=== PATIENT | female | born 1955 | race Caucasian/White ===

== ENCOUNTER 2018-04-18 01:17 | Emergency (ER) | payer MEDICAID ==
[~2018-04-18] VITALS: Ht 157.5 cm; Wt 86.2 kg
[~2018-04-18 01:17] MED LIST: AMOX-426 PO; CLON1TAB5 PO; GLUXR500 PO; LEVO88TA5 PO; LISI10TA5 PO; LORA10TA7 PO; OMEP20CA10 PO
[2018-04-18 01:28] VITALS: BP_SYST 134
[2018-04-18] MEDS ORDERED: NACL 0.9% 1,000 ML IV ONE (01:45)
[2018-04-18] MEDS ORDERED: ONDANSETRON HCL 4 MG/2 ML VIAL IVP ONE (01:45)
[2018-04-18 01:55] LABS: BILIRUBIN,URINE NEGATIVE (NEGATIVE); BLOOD, URINE NEGATIVE (NEGATIVE); CLARITY/URINE CLEAR (CLEAR); COLOR,URINE YELLOW (YELLOW); GLUCOSE,URINE NEGATIVE (NEGATIVE); KETONES,URINE NEGATIVE (NEGATIVE); LEUKOCYTE ESTERASE ,URINE TRACE (NEGATIVE); NITRITE, URINE NEGATIVE (NEGATIVE); PROTEIN URINE NEGATIVE (NEGATIVE); UROBILINOGEN,URINE 0.2 (0.2-1.0)
[2018-04-18 02:24] LABS: BASOPHILS # (AUTO) 0.2 K/uL (0.0-0.2); BASOPHILS % (AUTO) 1.9 % (0.0-2.0); EOSINOPHILS # (AUTO) 0.1 K/uL (0.0-0.4); HEMOGLOBIN 12.3 g/dL (12.0-16.0); LYMPHOCYTES # (AUTO) 2.3 K/uL (1.0-5.5); LYMPHOCYTES % (AUTO) 28.3 % (20.5-51.5); MEAN CORPUSCULAR HEMOGLOBIN 30 pg (27-31); MEAN CORPUSCULAR HGB CONC 34 % (32-36); MEAN CORPUSCULAR VOLUME 87 fL (79.0-98.0); MONOCYTES # (AUTO) 0.3 K/uL (0.0-1.0); MONOCYTES % (AUTO) 3.7 % (1.7-9.3); NEUTROPHILS # (AUTO) 5.1 K/uL (1.8-7.7); NEUTROPHILS % (AUTO) 65.1 % (40.0-70.0); PLATELET COUNT (AUTO) 350 K/uL (130-430); RED BLOOD CELL COUNT(AUTO) 4.13 MIL/uL (4.2-6.2); RED CELL DISTRIBUTION WIDTH 12.3 % (9.0-15.0)
[2018-04-18 02:39] LABS: CALCIUM 9.3 mg/dL (8.4-11.0); CREATININE 0.96 mg/dL (0.55-1.30); POTASSIUM 4.1 mmol/L (3.5-5.1)
[2018-04-18 02:45] LABS: ALBUMIN 3.7 g/dL (3.4-4.8); TOTAL BILIRUBIN 0.4 mg/dL (0.0-1.0)
[2018-04-18] MEDS ORDERED: HYDROcodone/ACETAMIN 5-325 MG TAB (NORCO/ VICODIN) PO ONE (05:45)
[2018-04-18 06:32] VITALS: BP_SYST 130
== END 2018-04-18 06:32 | disposition home or self-care (01) ==
LOC: SED 01:17
DX: R42 Dizziness and giddiness (principal); R11.0 Nausea; E03.9 Hypothyroidism, unspecified; R79.89 Other specified abnormal findings of blood chemistry; J45.909 Unspecified asthma, uncomplicated; E11.9 Type 2 diabetes mellitus without complications; K21.9 Gastro-esophageal reflux disease without esophagitis; I10 Essential (primary) hypertension; F41.9 Anxiety disorder, unspecified; E78.00 Pure hypercholesterolemia, unspecified; Z79.899 Other long term (current) drug therapy; Z88.8 Allergy status to other drugs, medicaments and biological substances
CPT/HCPCS: 36415; 70450; 71045; 80053; 81003; 83605; 84439; 84443; 84484; 85025; 87040; 93005; 96361; 96374; 99285; J2405; J7030

== ENCOUNTER 2019-05-04 18:48 | Emergency (ER) | payer BC, MEDICAID ==
[~2019-05-04] VITALS: Ht 157.5 cm; Wt 86.2 kg
[2019-05-04 18:48] VITALS: BP_SYST 172
[~2019-05-04 18:48] MED LIST changes: +CLON1TAB12 PO; -CLON1TAB5 PO
--- NOTE | 2019-05-04 18:48 | NUR ---
BROUGHT IN BY [facility] AND PLACED IN BED #3, REPORT GIVEN TO BIRD RAISER
--- NOTE | 2019-05-04 19:20 | NUR ---
Pt BIB BLS C/O generalized abdominal pain after eating tacos. Pt denies any N/V/D or any other symptoms at this time. Will continue to monitor.
[2019-05-04 19:44] LABS: BASOPHILS % (AUTO) 0.4 % (0.0-2.0); EOSINOPHILS % (AUTO) 0.2 % (0.0-4.0); HEMATOCRIT 37.5 % (36-48); HEMOGLOBIN 12.8 g/dL (12.0-16.0); LYMPHOCYTES % (AUTO) 23.8 % (20.5-51.5); MEAN CORPUSCULAR HEMOGLOBIN 30 pg (27-31); MEAN CORPUSCULAR HGB CONC 34 % (32-36); MEAN CORPUSCULAR VOLUME 88 fL (79.0-98.0); MONOCYTES # (AUTO) 0.8 K/uL (0.0-1.0); MONOCYTES % (AUTO) 6.6 % (1.7-9.3); NEUTROPHILS # (AUTO) 8.8 K/uL (1.8-7.7); PLATELET COUNT (AUTO) 337 K/uL (130-430); RED BLOOD CELL COUNT(AUTO) 4.25 MIL/uL (4.2-6.2); RED CELL DISTRIBUTION WIDTH 12.9 % (9.0-15.0); WHITE BLOOD COUNT (AUTO) 12.8 K/uL (4.8-10.8)
[2019-05-04 19:59] LABS: ALBUMIN 3.4 g/dL (3.4-4.8); CALCIUM 8.8 mg/dL (8.4-11.0); CREATININE 0.9 mg/dL (0.55-1.30); TOTAL BILIRUBIN 0.4 mg/dL (0.0-1.0)
--- NOTE | 2019-05-04 20:03 | NUR ---
Urine sample sent to lab.
[2019-05-04 20:04] LABS: PROTHROMBIN TIME 10.1 SECS (9.5-12.5)
--- NOTE | 2019-05-04 20:26 | NUR ---
ER Dr. Meraz at bedside examining patient.
[2019-05-04] MEDS ORDERED: NACL 0.9% 1,000 ML IV ONE (20:37)
[2019-05-04] MEDS ORDERED: IOHEXOL 100 ML IV ONE (20:59)
--- NOTE | 2019-05-04 21:05 | NUR ---
# 20 gauge angiocath placed to RT AC. Use of asceptic technique. Opsite placed over site. Blood return noted. Blood for lab drawn from site. Flushed with 10 cc of normal saline. No evidence of infiltration noted. Patient tolerated well.
[2019-05-04 21:06] LABS: BILIRUBIN,URINE NEGATIVE (NEGATIVE); CLARITY/URINE CLEAR (CLEAR); COLOR,URINE YELLOW (YELLOW); GLUCOSE,URINE NEGATIVE (NEGATIVE); KETONES,URINE NEGATIVE (NEGATIVE); LEUKOCYTE ESTERASE ,URINE NEGATIVE (NEGATIVE); NITRITE, URINE NEGATIVE (NEGATIVE); PROTEIN URINE NEGATIVE (NEGATIVE); UROBILINOGEN,URINE 0.2 (0.2-1.0)
[2019-05-04 21:07] LABS: BLOOD, URINE TRACE (NEGATIVE)
--- NOTE | 2019-05-04 21:15 | NUR ---
Patient transported to radiology via gurney, accompanied by rad staff.
[2019-05-04 21:17] LABS: BACTERIA,URINE FEW /HPF (None Seen); WBC,URINE 0-3 /HPF (0-3)
--- NOTE | 2019-05-04 21:37 | NUR ---
Returned from radiology in stable condition
[2019-05-04] MEDS ORDERED: metroNIDAZOLE 500 mg/NS 100 ML IV ONE (22:30)
[2019-05-04] MEDS ORDERED: CIPROFLOXACIN HCL 500 MG TABLET PO ONE (22:30)
--- NOTE | 2019-05-04 22:37 | NUR ---
Pt is resting in bed, no acute distress noted at this time. Will continue to monitor
--- NOTE | 2019-05-04 23:58 | NUR ---
Pt will be discharged but states she has no transportation home. States she lives alone, no family, friends or ability to drive.
[2019-05-05 00:24] VITALS: BP_SYST 148
--- NOTE | 2019-05-05 00:26 | NUR ---
Patient given written and verbal discharge instructions and verbalizes understanding. ER MD discussed with patient the results and treatment provided. Patient in stable condition. ID arm band removed. IV catheter removed intact and dressing applied, no active bleeding. Rx of Falgyl and Cipro given. Patient educated on pain management and to follow up with PMD. Pain Scale 0. Opportunity for questions provided and answered. Medication side effect fact sheet provided.
== END 2019-05-05 00:26 | disposition home or self-care (01) ==
LOC: SED 18:48
DX: K57.32 Diverticulitis of large intestine without perforation or abscess without bleeding (principal); J45.909 Unspecified asthma, uncomplicated; E11.9 Type 2 diabetes mellitus without complications; K21.9 Gastro-esophageal reflux disease without esophagitis; I10 Essential (primary) hypertension; E07.9 Disorder of thyroid, unspecified; F41.9 Anxiety disorder, unspecified; E78.00 Pure hypercholesterolemia, unspecified; Z90.49 Acquired absence of other specified parts of digestive tract; Z90.710 Acquired absence of both cervix and uterus; Z88.8 Allergy status to other drugs, medicaments and biological substances; Z79.84 Long term (current) use of oral hypoglycemic drugs
CPT/HCPCS: 36415; 74018; 74177; 80053; 81000; 83690; 85025; 85610; 85730; 87040; 96361; 96365; 99284; J3490; J7030; Q9967

== ENCOUNTER 2019-07-05 08:28 | Emergency (ER) | payer BC, MEDICAID ==
[~2019-07-05] VITALS: Ht 157.5 cm; Wt 86.2 kg
[~2019-07-05 08:28] MED LIST changes: -OMEP20CA10 PO; +OMEP20CA11 PO
[2019-07-05 08:34] VITALS: BP_SYST 156
[2019-07-05] MEDS ORDERED: DIPHENHYDRAMINE INJ 50 MG/ML VIAL IVP ONE (08:45)
[2019-07-05] MEDS ORDERED: NS 500 ML IV ONE (08:45)
[2019-07-05] MEDS ORDERED: PROCHLORPERAZINE EDISYLATE 10 MG/2 ML VIAL IVP ONE (08:45)
[2019-07-05] MEDS ORDERED: SIMV10TA2 PO (08:45)
[2019-07-05] MEDS ORDERED: ASPI-1047 PO (08:46)
[2019-07-05 10:30] VITALS: BP_SYST 115
== END 2019-07-05 10:30 | disposition home or self-care (01) ==
LOC: SED 08:28
DX: R51 Headache (principal); R11.2 Nausea with vomiting, unspecified; I10 Essential (primary) hypertension; E11.9 Type 2 diabetes mellitus without complications; J45.909 Unspecified asthma, uncomplicated; K21.9 Gastro-esophageal reflux disease without esophagitis; E78.00 Pure hypercholesterolemia, unspecified; F41.9 Anxiety disorder, unspecified; Z88.8 Allergy status to other drugs, medicaments and biological substances; Z79.84 Long term (current) use of oral hypoglycemic drugs; Z79.899 Other long term (current) drug therapy
CPT/HCPCS: 70450; 96361; 96374; 96375; 99284; J0780; J1200; J7040

== ENCOUNTER 2020-10-02 23:02 | Emergency (ER) | payer BC, MEDICAID ==
[~2020-10-02] VITALS: Ht 167.6 cm; Wt 74.8 kg
[~2020-10-02 23:02] MED LIST changes: +ASPI-1047 PO; -OMEP20CA11 PO; +OMEP20CA15 PO; +SIMV10TA2 PO
[2020-10-02 23:04] VITALS: BP_SYST 152
--- NOTE | 2020-10-02 23:09 | NUR ---
Patient triaged and placed in ambulance. VSS and patient appears in no acute distress at this time. Accompanied by EMS , awaiting available bed, and MD notified of need for MSE.
--- NOTE | 2020-10-02 23:55 | NUR ---
Patient did not wish to stay. Patient left without being seen. No further treatment provided
[2020-10-03] MEDS ORDERED: ONDANSETRON 4 MG ODT TAB PO ONE
== END 2020-10-02 23:55 | disposition left against medical advice (07) ==
LOC: SED 23:02
DX: R11.10 Vomiting, unspecified (principal); Z53.21 Procedure and treatment not carried out due to patient leaving prior to being seen by health care provider
CPT/HCPCS: 82962

== ENCOUNTER 2021-10-24 13:28 | Emergency (ER) | payer BC, MEDICAID, SELFPAY ==
[~2021-10-24] VITALS: Ht 157.5 cm; Wt 81.6 kg
[~2021-10-24 13:28] MED LIST changes: +LISI10TA29 PO; -LISI10TA5 PO
[2021-10-24 13:43] VITALS: BP_SYST 143
--- NOTE | 2021-10-24 13:45 | NUR ---
PT A/OX4 , AMBULATORY FROM HOME, C/O SOB X3 DAYS. PT PLACED IN R 8 ON MONITOR, VSS. ED MD HUNT SEEN PT GAVE ORDERS . PT APPEARS STABLE , NAD NOTED
--- NOTE | 2021-10-24 14:25 | NUR ---
PT REMAIN IN ROOM 8 ON THE CONVEYANCER, NO CHANGES IN CONDIRION, AWAITING MD ORDERS
[2021-10-24 14:53] LABS: BASOPHILS # (AUTO) 0.1 K/uL (0.0-0.2); EOSINOPHILS # (AUTO) 0.3 K/uL (0.0-0.4); EOSINOPHILS % (AUTO) 3.3 % (0.0-4.0); HEMATOCRIT 35.1 % (36-48); HEMOGLOBIN 11.9 g/dL (12.0-16.0); LYMPHOCYTES % (AUTO) 34.3 % (20.5-51.5); MEAN CORPUSCULAR HEMOGLOBIN 29 pg (27-31); MEAN CORPUSCULAR HGB CONC 34 % (32-36); MEAN CORPUSCULAR VOLUME 85 fL (79.0-98.0); MONOCYTES # (AUTO) 0.6 K/uL (0.0-1.0); MONOCYTES % (AUTO) 6.5 % (1.7-9.3); NEUTROPHILS # (AUTO) 4.8 K/uL (1.8-7.7); NEUTROPHILS % (AUTO) 54.9 % (40.0-70.0); PLATELET COUNT (AUTO) 340 K/uL (130-430); RED BLOOD CELL COUNT(AUTO) 4.14 MIL/uL (4.2-6.2); RED CELL DISTRIBUTION WIDTH 14.2 % (9.0-15.0); WHITE BLOOD COUNT (AUTO) 8.7 K/uL (4.8-10.8)
[2021-10-24 14:54] LABS: CALCIUM 8.8 mg/dL (8.4-11.0); CREATININE 0.75 mg/dL (0.55-1.30); POTASSIUM 3.9 mmol/L (3.5-5.1)
--- NOTE | 2021-10-24 14:56 | NUR ---
PT SWABBED AND SENT TO LAB
[2021-10-24 15:00] LABS: ALBUMIN 3.6 g/dL (3.4-4.8); TOTAL BILIRUBIN 0.2 mg/dL (0.0-1.0)
[2021-10-24] MEDS ORDERED: IPRATROPIUM/ALBUTEROL SULFATE 3 ML AMPUL.NEB (DUONEB) INH ONE ×2 (15:15)
[2021-10-24] MEDS ORDERED: predniSONE 20 MG TABLET PO ONE (15:15)
[2021-10-24] MEDS ORDERED: ALBUTEROL SULFATE 0.083% 2.5 MG/3 ML VIAL.NEB INH ONE (15:15)
--- NOTE | 2021-10-24 15:20 | NUR ---
PT MEDICATED PER MD SORENSEN ORDER. RT TX IN ROUTE AT THE BED SIDE
--- NOTE | 2021-10-24 15:34 | NUR ---
PT AMBULATED TO BATHROOM, W/O DIFFICULTIES
[2021-10-24] MEDS ORDERED: AZIT-93 PO (16:47)
[2021-10-24] MEDS ORDERED: PRED20TA PO (16:47)
[2021-10-24] MEDS ORDERED: ALBU8.5H8 INH (16:47)
[2021-10-24 17:25] VITALS: BP_SYST 140
--- NOTE | 2021-10-24 17:25 | NUR ---
Patient given written and verbal discharge instructions and verbalizes understanding. ER MD Clemens discussed with patient the results and treatment provided. Patient in stable condition. ID arm band removed. Rx and ACI given and explained . Patient educated on pain management and to follow up with PMD. Pain Scale . Opportunity for questions provided and answered. Medication side effect fact sheet provided.
== END 2021-10-24 17:25 | disposition home or self-care (01) ==
LOC: SED 13:28
DX: J45.901 Unspecified asthma with (acute) exacerbation (principal); E11.9 Type 2 diabetes mellitus without complications; K21.9 Gastro-esophageal reflux disease without esophagitis; I10 Essential (primary) hypertension; E07.9 Disorder of thyroid, unspecified; F41.9 Anxiety disorder, unspecified; E78.00 Pure hypercholesterolemia, unspecified; Z20.822 Contact with and (suspected) exposure to COVID-19
CPT/HCPCS: 36415; 71045; 80053; 83605; 83880; 85025; 87426; 87804 ×2; 94640; 99285; J7512; J7613

== ENCOUNTER 2021-12-11 23:26 | Emergency (ER) | payer BC, MEDICAID, SELFPAY ==
[~2021-12-11] VITALS: Ht 160 cm; Wt 93.0 kg
[~2021-12-11 23:26] MED LIST changes: +ALBU8.5H8 INH; +AZIT-93 PO; +PRED20TA PO
[2021-12-11 23:41] VITALS: BP_SYST 146
--- NOTE | 2021-12-11 23:46 | NUR ---
66 FEMALE BROUGHT IN BY [facility] FOR WEAKNESS, NAUSEA WITH VOMITING, HEADACHE AND ELEVATED BLOOD PRESSURE. PT IS AOX4, AND IS OMANI SPEAKING ONLY. PT REPORTS HISTORY OF HYPERTENSION, DIABETES, AND HYPOTHYROID. 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 MD AT THE BEDSIDE
--- NOTE | 2021-12-11 23:50 | NUR ---
EMS= BLG SUGAR= 164
[2021-12-12] MEDS ORDERED: ASPIRIN 325 MG TABLET PO ONE
[2021-12-12] MEDS ORDERED: cloNIDine HCL 0.1 MG TABLET PO ONE
[2021-12-12] MEDS ORDERED: cloNIDine HCL 0.1 MG TABLET ONE (00:06)
[2021-12-12 00:52] LABS: BASOPHILS # (AUTO) 0.1 K/uL (0.0-0.2); BASOPHILS % (AUTO) 0.9 % (0.0-2.0); EOSINOPHILS # (AUTO) 0.1 K/uL (0.0-0.4); EOSINOPHILS % (AUTO) 0.8 % (0.0-4.0); HEMATOCRIT 37.8 % (36-48); HEMOGLOBIN 12.7 g/dL (12.0-16.0); LYMPHOCYTES # (AUTO) 2.3 K/uL (1.0-5.5); LYMPHOCYTES % (AUTO) 33.4 % (20.5-51.5); MEAN CORPUSCULAR HEMOGLOBIN 29 pg (27-31); MEAN CORPUSCULAR HGB CONC 34 % (32-36); MEAN CORPUSCULAR VOLUME 85 fL (79.0-98.0); MONOCYTES # (AUTO) 0.4 K/uL (0.0-1.0); MONOCYTES % (AUTO) 6.4 % (1.7-9.3); NEUTROPHILS % (AUTO) 58.5 % (40.0-70.0); PLATELET COUNT (AUTO) 355 K/uL (130-430); RED BLOOD CELL COUNT(AUTO) 4.44 MIL/uL (4.2-6.2); RED CELL DISTRIBUTION WIDTH 13.2 % (9.0-15.0); WHITE BLOOD COUNT (AUTO) 6.8 K/uL (4.8-10.8)
[2021-12-12 01:19] LABS: ANION GAP 12 (5-15); CALCIUM 9.2 mg/dL (8.4-11.0); CHLORIDE 98 mmol/L (98-107); CREATININE 0.92 mg/dL (0.55-1.30); GLUCOSE 160 mg/dL (70-99); POTASSIUM 3.9 mmol/L (3.5-5.1); SODIUM SERUM 135 mmol/L (136-145); UREA NITROGEN, BLOOD 15 mg/dL (8-21)
[2021-12-12 01:22] LABS: GFR AFRICAN AMERICAN 78 mL/min (>90)
[2021-12-12 01:28] LABS: ALANINE AMINOTRANSFERASE 21 U/L (12-78); ALBUMIN 3.7 g/dL (3.4-4.8); ASPARTATE AMINOTRANSFERASE 16 U/L (10-37)
[2021-12-12 01:42] LABS: TOTAL BILIRUBIN < 0.1 mg/dL (0.0-1.0)
[2021-12-12 02:30] LABS: BILIRUBIN,URINE NEGATIVE (NEGATIVE); BLOOD, URINE NEGATIVE (NEGATIVE); CLARITY/URINE CLEAR (CLEAR); COLOR,URINE YELLOW (YELLOW); GLUCOSE,URINE NEGATIVE (NEGATIVE); KETONES,URINE NEGATIVE (NEGATIVE); LEUKOCYTE ESTERASE ,URINE NEGATIVE (NEGATIVE); NITRITE, URINE NEGATIVE (NEGATIVE); PROTEIN URINE NEGATIVE (NEGATIVE); UROBILINOGEN,URINE 0.2 (0.2-1.0)
[2021-12-12] MEDS ORDERED: CLON0.1T PO (02:53)
[2021-12-12 03:07] VITALS: BP_SYST 135
--- NOTE | 2021-12-12 03:08 | NUR ---
D/C IV AND EDUCATED PT UPON MEDS THAT ARE RX. TO PT. NO RESP DISTRESS AND NO CO PAIN AND CONFIRMED PT IS GOOD FOR D/C HOME. PT CALLED [facility]
== END 2021-12-12 03:44 | disposition home or self-care (01) ==
LOC: SED 23:26
DX: I10 Essential (primary) hypertension (principal); R42 Dizziness and giddiness; E11.9 Type 2 diabetes mellitus without complications; J45.909 Unspecified asthma, uncomplicated; K21.9 Gastro-esophageal reflux disease without esophagitis; E03.9 Hypothyroidism, unspecified; E78.00 Pure hypercholesterolemia, unspecified; F41.9 Anxiety disorder, unspecified; Z88.8 Allergy status to other drugs, medicaments and biological substances; Z79.899 Other long term (current) drug therapy
CPT/HCPCS: 36415; 70450-TC; 71045; 76376; 80053; 81003; 84484; 85025; 93005; 99285

== ENCOUNTER 2022-01-10 18:44 | Emergency (ER) | payer BC, MEDICAID ==
[~2022-01-10] VITALS: Ht 157.5 cm; Wt 81.6 kg
[~2022-01-10 18:44] MED LIST changes: +CLON0.1T PO
[2022-01-10 18:47] VITALS: BP_SYST 181
--- NOTE | 2022-01-10 18:47 | NUR ---
Placed in room 6 . Placed on compliance monitor, blood pressure machine and pulse oximeter. To gown for exam. Side rails up. Report given to SALLY FLEMING.
--- NOTE | 2022-01-10 18:50 | NUR ---
ER DR. AYERS EXAMINING PT
--- NOTE | 2022-01-10 18:55 | NUR ---
PT AMBULATES TO BATHROOM WITH STEADY GAIT TO PROVIDE URINE SAMPLE
--- NOTE | 2022-01-10 19:05 | NUR ---
# 20 gauge angiocath placed to RAC. Use of asceptic technique. Opsite placed over site. Blood return noted. Blood for lab drawn from site. Flushed with 10 cc of normal saline. No evidence of infiltration noted. Patient tolerated well.
--- NOTE | 2022-01-10 19:10 | NUR ---
RECD REPORT FROM ARMANI ZAVALA FOR CONTINUITY OF CARE, N/S 1L RUNNING BOLUS. VS TAKEN AND RECORDED.AFEBRIE.
[2022-01-10 19:12] LABS: BILIRUBIN,URINE NEGATIVE (NEGATIVE); BLOOD, URINE NEGATIVE (NEGATIVE); CLARITY/URINE CLEAR (CLEAR); COLOR,URINE YELLOW (YELLOW); GLUCOSE,URINE 1+ (NEGATIVE); KETONES,URINE NEGATIVE (NEGATIVE); LEUKOCYTE ESTERASE ,URINE NEGATIVE (NEGATIVE); NITRITE, URINE NEGATIVE (NEGATIVE); PROTEIN URINE NEGATIVE (NEGATIVE); UROBILINOGEN,URINE 0.2 (0.2-1.0)
[2022-01-10] MEDS: NACL 0.9% 1,000 ML IV ONE (19:16)
[2022-01-10] MEDS: ONDANSETRON HCL 4 MG/2 ML VIAL IVP ONE (19:17)
[2022-01-10 19:18] LABS: BASOPHILS # (AUTO) 0.1 K/uL (0.0-0.2); BASOPHILS % (AUTO) 0.8 % (0.0-2.0); EOSINOPHILS # (AUTO) 0.1 K/uL (0.0-0.4); EOSINOPHILS % (AUTO) 0.6 % (0.0-4.0); HEMATOCRIT 35.7 % (36-48); LYMPHOCYTES # (AUTO) 3.4 K/uL (1.0-5.5); LYMPHOCYTES % (AUTO) 37.9 % (20.5-51.5); MEAN CORPUSCULAR HEMOGLOBIN 29 pg (27-31); MEAN CORPUSCULAR HGB CONC 34 % (32-36); MEAN CORPUSCULAR VOLUME 85 fL (79.0-98.0); MONOCYTES # (AUTO) 0.5 K/uL (0.0-1.0); NEUTROPHILS # (AUTO) 4.9 K/uL (1.8-7.7); NEUTROPHILS % (AUTO) 54.7 % (40.0-70.0); PLATELET COUNT (AUTO) 339 K/uL (130-430); RED BLOOD CELL COUNT(AUTO) 4.18 MIL/uL (4.2-6.2); RED CELL DISTRIBUTION WIDTH 13.3 % (9.0-15.0); WHITE BLOOD COUNT (AUTO) 8.9 K/uL (4.8-10.8)
[2022-01-10 19:27] LABS: ANION GAP 9 (5-15); CHLORIDE 97 mmol/L (98-107); CREATININE 0.92 mg/dL (0.55-1.30); GLUCOSE 223 mg/dL (70-99); POTASSIUM 3.5 mmol/L (3.5-5.1); SODIUM SERUM 130 mmol/L (136-145); UREA NITROGEN, BLOOD 17 mg/dL (8-21)
[2022-01-10 19:29] LABS: GFR AFRICAN AMERICAN 78 mL/min (>90)
[2022-01-10 19:32] LABS: ALANINE AMINOTRANSFERASE 18 U/L (12-78); ALBUMIN 3.6 g/dL (3.4-4.8); ASPARTATE AMINOTRANSFERASE 14 U/L (10-37); TOTAL BILIRUBIN < 0.1 mg/dL (0.0-1.0)
[2022-01-10] MEDS ORDERED: ONDA-8 TL (21:17)
--- NOTE | 2022-01-10 21:30 | NUR ---
Patient given written and verbal discharge instructions and verbalizes understanding. BAM AYERS MD discussed with patient the results and treatment provided. Patient in stable condition. Patient educated on pain management and to follow up with PMD. Pain Scale [0]. Opportunity for questions provided and answered. Medication side effect fact sheet provided.
[2022-01-10 21:41] VITALS: BP_SYST 142
== END 2022-01-10 21:41 | disposition home or self-care (01) ==
LOC: SED 18:44
DX: R11.2 Nausea with vomiting, unspecified (principal); T43.225A Adverse effect of selective serotonin reuptake inhibitors, initial encounter; I10 Essential (primary) hypertension; E11.9 Type 2 diabetes mellitus without complications; J45.909 Unspecified asthma, uncomplicated; K21.9 Gastro-esophageal reflux disease without esophagitis; E78.00 Pure hypercholesterolemia, unspecified; Z88.8 Allergy status to other drugs, medicaments and biological substances; Z79.899 Other long term (current) drug therapy; Y92.89 Other specified places as the place of occurrence of the external cause
CPT/HCPCS: 36415; 80053; 81003; 85025; 96361; 96374; 99283; J2405; J7030

== ENCOUNTER 2022-03-18 13:16 | Emergency (ER) | payer BC, MEDICAID ==
[~2022-03-18] VITALS: Ht 154.9 cm; Wt 68.0 kg
[~2022-03-18 13:16] MED LIST changes: +ONDA-8 TL
[2022-03-18 13:30] VITALS: BP_SYST 165
--- NOTE | 2022-03-18 14:00 | NUR ---
Patient to ER bed Tent 3 for evaluation. Side rails up.
--- NOTE | 2022-03-18 14:10 | NUR ---
Assumed care of patient who came from home c/o cold and flu symptoms. Patient is tamazight-speaking. Pt states she has a hx of TII DM, Htn and asthma. She is resting in tent on chair at this time and appears in no acute distress. Will continue to administer care based on provider's orders.
--- NOTE | 2022-03-18 16:17 | NUR ---
BAM Singleton at bedside examining patient.
--- NOTE | 2022-03-18 17:20 | NUR ---
Patient left without being seen.
== END 2022-03-18 17:20 | disposition left against medical advice (07) ==
LOC: SED 13:16
DX: R06.02 Shortness of breath (principal); Z53.21 Procedure and treatment not carried out due to patient leaving prior to being seen by health care provider

== ENCOUNTER 2022-03-21 11:12 | Emergency (ER) | payer BC, MEDICAID ==
[~2022-03-21] VITALS: Ht 157.5 cm; Wt 81.6 kg
[2022-03-21 11:48] VITALS: BP_SYST 141
--- NOTE | 2022-03-21 11:57 | NUR ---
Patient to ER bed 8 to gown for evaluation. Side rails up. Report given to
--- NOTE | 2022-03-21 12:10 | NUR ---
MD BURGOS AT BEDSIDE ASSESSING PT.
[2022-03-21] MEDS ORDERED: DIPHENHYDRAMINE INJ 50 MG/ML VIAL IVP ONE (12:30)
[2022-03-21] MEDS ORDERED: NS 1000 ML IV.SOLN IV ONE (12:30)
[2022-03-21] MEDS ORDERED: ONDANSETRON HCL 4 MG/2 ML VIAL IVP ONE (12:30)
[2022-03-21] MEDS ORDERED: KETOROLAC TROMETHAMINE 30 MG VIAL IVP ONE (12:30)
[2022-03-21 13:10] LABS: BASOPHILS # (AUTO) 0.1 K/uL (0.0-0.2); BASOPHILS % (AUTO) 1.1 % (0.0-2.0); EOSINOPHILS # (AUTO) 0.1 K/uL (0.0-0.4); HEMATOCRIT 36.8 % (36-48); HEMOGLOBIN 12.8 g/dL (12.0-16.0); LYMPHOCYTES # (AUTO) 1.9 K/uL (1.0-5.5); LYMPHOCYTES % (AUTO) 43.4 % (20.5-51.5); MEAN CORPUSCULAR HEMOGLOBIN 29 pg (27-31); MEAN CORPUSCULAR HGB CONC 35 % (32-36); MEAN CORPUSCULAR VOLUME 84 fL (79.0-98.0); MONOCYTES # (AUTO) 0.6 K/uL (0.0-1.0); MONOCYTES % (AUTO) 13.8 % (1.7-9.3); NEUTROPHILS # (AUTO) 1.8 K/uL (1.8-7.7); NEUTROPHILS % (AUTO) 39.7 % (40.0-70.0); PLATELET COUNT (AUTO) 243 K/uL (130-430); RED BLOOD CELL COUNT(AUTO) 4.37 MIL/uL (4.2-6.2); RED CELL DISTRIBUTION WIDTH 13.7 % (9.0-15.0); WHITE BLOOD COUNT (AUTO) 4.4 K/uL (4.8-10.8)
--- NOTE | 2022-03-21 13:18 | NUR ---
IV INSERTED TO THE RIGHT WRIST IN 2 ATTEMPTS.
--- NOTE | 2022-03-21 13:30 | NUR ---
PT DOING BETTER. NEGATIVE FOR COVID AND FLU. PT IS STABLE.
[2022-03-21 13:34] LABS: ANION GAP 8 (5-15); CALCIUM 9.2 mg/dL (8.4-11.0); CHLORIDE 95 mmol/L (98-107); GFR AFRICAN AMERICAN 92 mL/min (>90); GLUCOSE 183 mg/dL (70-99); POTASSIUM 3.9 mmol/L (3.5-5.1); SODIUM SERUM 128 mmol/L (136-145); UREA NITROGEN, BLOOD 12 mg/dL (8-21)
[2022-03-21 13:38] LABS: ALANINE AMINOTRANSFERASE 20 U/L (12-78); ALBUMIN 3.6 g/dL (3.4-4.8); ASPARTATE AMINOTRANSFERASE 17 U/L (10-37); TOTAL BILIRUBIN 0.3 mg/dL (0.0-1.0)
[2022-03-21] MEDS ORDERED: IBUP-1969 PO (14:15)
[2022-03-21] MEDS ORDERED: ACET-2634 PO (14:16)
[2022-03-21 14:25] LABS: BILIRUBIN,URINE NEGATIVE (NEGATIVE); BLOOD, URINE NEGATIVE (NEGATIVE); CLARITY/URINE CLEAR (CLEAR); GLUCOSE,URINE NEGATIVE (NEGATIVE); KETONES,URINE NEGATIVE (NEGATIVE); LEUKOCYTE ESTERASE ,URINE NEGATIVE (NEGATIVE); NITRITE, URINE NEGATIVE (NEGATIVE); PH,URINE 6.5 (5.0-8.0); PROTEIN URINE NEGATIVE (NEGATIVE); UROBILINOGEN,URINE 0.2 (0.2-1.0)
[2022-03-21 14:26] LABS: COLOR,URINE STRAW (YELLOW)
[2022-03-21] MEDS ORDERED: ALBMDI INH (14:55)
--- NOTE | 2022-03-21 15:22 | NUR ---
Patient given written and verbal discharge instructions and verbalizes understanding. ER MD discussed with patient the results and treatment provided. Patient in stable condition. ID arm band removed. IV catheter removed intact and dressing applied, no active bleeding. Rx of TYLENOL XTRA STRENTH, ALBUTEROL, MOTRIN given. Patient educated on pain management and to follow up with PMD. Pain Scale 0/10. Opportunity for questions provided and answered. Medication side effect fact sheet provided.
[2022-03-21 15:37] VITALS: BP_SYST 137
== END 2022-03-21 15:37 | disposition home or self-care (01) ==
LOC: SED 11:12
DX: R51.9 Headache, unspecified (principal); R50.9 Fever, unspecified; M79.10 Myalgia, unspecified site; J45.909 Unspecified asthma, uncomplicated; E11.9 Type 2 diabetes mellitus without complications; I10 Essential (primary) hypertension; K21.9 Gastro-esophageal reflux disease without esophagitis; Z88.6 Allergy status to analgesic agent; Z88.8 Allergy status to other drugs, medicaments and biological substances; Z20.822 Contact with and (suspected) exposure to COVID-19
CPT/HCPCS: 99285; 96374; 71045; 96361; 96375; 87426; 80053; 85025; 87040; 87086; 84484; 36415; 93005; 83605; 81003; 87804 ×2; J1200; J1885; J2405; J7030

== ENCOUNTER 2022-08-25 01:47 | Emergency (ER) | payer BC, MEDICAID ==
[~2022-08-25] VITALS: Ht 165.1 cm; Wt 68.0 kg
[~2022-08-25 01:47] MED LIST changes: +ACET-2634 PO; +ALBMDI INH; +IBUP-1969 PO; +SIMV-341 PO; -SIMV10TA2 PO
[2022-08-25 02:05] VITALS: BP_SYST 165
--- NOTE | 2022-08-25 02:08 | NUR ---
PT FROM HOME WITH C/O HIGH BLOOD PRESSURE, HEADACHE, ADN DIZZINESS. PT REPORTSNOT TAKING FULL DOSE OF HER HTN MEDICATION FOR THE PAST 2 DAYS. PT ON GIOVANNI AND MICHELLE CUELLAR.
[2022-08-25] MEDS ORDERED: cloNIDine HCL 0.1 MG TABLET PO ONE (02:15)
--- NOTE | 2022-08-25 02:15 | NUR ---
WITH PATIENT FOR MSE.
--- NOTE | 2022-08-25 02:30 | NUR ---
PT MEDICATED PER MD ORDER, SEE eMAR.
--- NOTE | 2022-08-25 02:35 | NUR ---
PT REPORTING HEADACHE. MADE AWARE.
[2022-08-25] MEDS ORDERED: ACETAMINOPHEN 500 MG TABLET PO ONE (02:45)
[2022-08-25] MEDS ORDERED: LORazepam 2 MG/ML VIAL IM ONE (03:00)
[2022-08-25] MEDS ORDERED: LORazepam 2 MG/ML VIAL ONE (03:00)
[2022-08-25 03:02] LABS: BASOPHILS # (AUTO) 0.1 K/uL (0.0-0.2); BASOPHILS % (AUTO) 0.9 % (0.0-2.0); EOSINOPHILS % (AUTO) 0.4 % (0.0-4.0); HEMATOCRIT 36.9 % (36-48); HEMOGLOBIN 12.7 g/dL (12.0-16.0); LYMPHOCYTES # (AUTO) 3.1 K/uL (1.0-5.5); LYMPHOCYTES % (AUTO) 34.7 % (20.5-51.5); MEAN CORPUSCULAR HEMOGLOBIN 30 pg (27-31); MEAN CORPUSCULAR HGB CONC 35 % (32-36); MEAN CORPUSCULAR VOLUME 86 fL (79.0-98.0); MONOCYTES # (AUTO) 0.6 K/uL (0.0-1.0); MONOCYTES % (AUTO) 6.9 % (1.7-9.3); NEUTROPHILS # (AUTO) 5.1 K/uL (1.8-7.7); NEUTROPHILS % (AUTO) 57.1 % (40.0-70.0); PLATELET COUNT (AUTO) 359 K/uL (130-430); RED CELL DISTRIBUTION WIDTH 12.8 % (9.0-15.0); WHITE BLOOD COUNT (AUTO) 8.9 K/uL (4.8-10.8)
[2022-08-25 03:20] LABS: ANION GAP 9 (5-15); CHLORIDE 99 mmol/L (98-107); CREATININE 0.94 mg/dL (0.55-1.30); GLUCOSE 198 mg/dL (70-99); UREA NITROGEN, BLOOD 17 mg/dL (8-21)
[2022-08-25 03:28] LABS: ALANINE AMINOTRANSFERASE 17 U/L (12-78); ASPARTATE AMINOTRANSFERASE 15 U/L (10-37); TOTAL BILIRUBIN 0.3 mg/dL (0.0-1.0)
[2022-08-25 03:34] LABS: GFR AFRICAN AMERICAN 76 mL/min (>90)
--- NOTE | 2022-08-25 04:05 | NUR ---
PT MOVED FROM [facility] TO WAITING ROOM. AMBULATORY AND FOLLOWING COMMANDS. PT WILL BE GIVEN TAXI VOUCHER.
[2022-08-25 04:17] VITALS: BP_SYST 128
--- NOTE | 2022-08-25 04:17 | NUR ---
Patient given written and verbal discharge instructions and verbalizes understanding. ER DR. AYERS discussed with patient the results and treatment provided. Patient in stable condition. ID arm band removed. Patient educated on pain management and to follow up with PMD. Pain Scale 0. Opportunity for questions provided and answered. Medication side effect fact sheet provided. PT TO WAIT FOR TAXI IN WAITING ROOM.
== END 2022-08-25 04:17 | disposition home or self-care (01) ==
LOC: SED 01:47
DX: I10 Essential (primary) hypertension (principal); R51.9 Headache, unspecified; K21.9 Gastro-esophageal reflux disease without esophagitis; E11.9 Type 2 diabetes mellitus without complications; J45.909 Unspecified asthma, uncomplicated; Z88.8 Allergy status to other drugs, medicaments and biological substances; Z79.899 Other long term (current) drug therapy
CPT/HCPCS: 99283; 80053; 85025; 84484; 36415; 96372; J2060

== ENCOUNTER 2023-08-03 07:34 | Inpatient (IN) | payer BC ==
[~2023-08-03] VITALS: Ht 157.5 cm; Wt 83.9 kg
[2023-08-03 07:43] VITALS: BP_SYST 175; PULSE 80; RESP 18; TEMP 97.8; O2SAT 100
[2023-08-03] MEDS ORDERED: NACL 0.9% 1,000 ML IV ONE (08:00)
[2023-08-03] MEDS ORDERED: ONDANSETRON HCL 4 MG/2 ML VIAL IVP ONE (08:00)
[2023-08-03] MEDS ORDERED: LORazepam 2 MG/ML VIAL IVP ONE (09:00)
[2023-08-03 09:06] LABS: BASOPHILS # (AUTO) 0.1 K/uL (0.0-0.2); EOSINOPHILS % (AUTO) 0.2 % (0.0-4.0); HEMATOCRIT 34.8 % (36-48); HEMOGLOBIN 11.8 g/dL (12.0-16.0); LYMPHOCYTES # (AUTO) 1.9 K/uL (1.0-5.5); LYMPHOCYTES % (AUTO) 25.4 % (20.5-51.5); MEAN CORPUSCULAR HEMOGLOBIN 29 pg (27-31); MEAN CORPUSCULAR HGB CONC 34 % (32-36); MEAN CORPUSCULAR VOLUME 87 fL (79.0-98.0); MONOCYTES # (AUTO) 0.4 K/uL (0.0-1.0); MONOCYTES % (AUTO) 5.7 % (1.7-9.3); NEUTROPHILS # (AUTO) 5.1 K/uL (1.8-7.7); NEUTROPHILS % (AUTO) 67.7 % (40.0-70.0); PLATELET COUNT (AUTO) 384 K/uL (130-430); RED BLOOD CELL COUNT(AUTO) 4.01 MIL/uL (4.2-6.2); RED CELL DISTRIBUTION WIDTH 13.1 % (9.0-15.0); WHITE BLOOD COUNT (AUTO) 7.6 K/uL (4.8-10.8)
[2023-08-03 09:09] LABS: ANION GAP 7 (5-15); CALCIUM 9.5 mg/dL (8.4-11.0); CARBON DIOXIDE 25 mmol/L (23-29); CHLORIDE 94 mmol/L (98-107); CREATININE 0.87 mg/dL (0.55-1.30); GLUCOSE 191 mg/dL (74-106); POTASSIUM 4.5 mmol/L (3.5-5.1); SODIUM SERUM 126 mmol/L (136-145); UREA NITROGEN, BLOOD 8 mg/dL (8-21)
[2023-08-03 09:17] LABS: GFR AFRICAN AMERICAN 83 mL/min (>90); GFR NON AFRICAN-AMERICAN 68 mL/min (>90)
[2023-08-03 09:23] LABS: ALANINE AMINOTRANSFERASE 18 U/L (12-78); ALBUMIN 3.8 g/dL (3.4-4.8); ASPARTATE AMINOTRANSFERASE 15 U/L (10-37); BILIRUBIN,DIRECT 0.1 mg/dL (0.0-0.3); THYROID STIMULATING HORMONE 16.11 uIu/mL (0.34-4.82); TOTAL BILIRUBIN 0.4 mg/dL (0.0-1.0); TOTAL PROTEIN, SERUM 7.2 g/dL (6.4-8.3)
[2023-08-03] MEDS ORDERED: LEVO100T9 PO (09:46)
[2023-08-03] MEDS ORDERED: LISI20TA30 PO (09:46)
[2023-08-03] MEDS ORDERED: ALBMDI INH (09:46)
[2023-08-03] MEDS ORDERED: ALBUTEROL SULFATE 0.083% 2.5 MG/3 ML VIAL.NEB INH PRN (12:00)
[2023-08-03] MEDS ORDERED: HYDROcodone/ACETAMIN 5-325 MG TAB (NORCO/ VICODIN) PO PRN ×2 (12:00)
[2023-08-03] MEDS ORDERED: OMEPRAZOLE Non-Formulary 20 MG CAPSULE.DR PO SCH (12:00)
[2023-08-03] MEDS ORDERED: ACETAMINOPHEN 325 MG TABLET PO PRN ×2 (12:00→12:15)
[2023-08-03] MEDS ORDERED: ONDANSETRON HCL 4 MG/2 ML VIAL IVP PRN (12:00)
[2023-08-03 13:00] VITALS: BP_SYST 155; PULSE 86; RESP 18; TEMP 96.2; O2SAT 99
[2023-08-03 13:04] LABS: BILIRUBIN,URINE NEGATIVE (NEGATIVE); BLOOD, URINE NEGATIVE (NEGATIVE); CLARITY/URINE CLEAR (CLEAR); COLOR,URINE YELLOW (YELLOW); GLUCOSE,URINE NEGATIVE (NEGATIVE); KETONES,URINE NEGATIVE (NEGATIVE); LEUKOCYTE ESTERASE ,URINE NEGATIVE (NEGATIVE); NITRITE, URINE NEGATIVE (NEGATIVE); PH,URINE 5.5 (5.0-8.0); PROTEIN URINE NEGATIVE (NEGATIVE); UROBILINOGEN,URINE 0.2 (0.2-1.0)
[2023-08-03] MEDS ORDERED: GLUCOSE (DEXTROSE) ORAL GEL -Adults PO PRN (14:00)
[2023-08-03] MEDS ORDERED: DEXTROSE 50% JECT 50 ML DISP.SYRIN IVP PRN (14:00)
[2023-08-03] MEDS ORDERED: INSULIN REGULAR, HUMAN 100 UNITS/ML, 3 ML VIAL (humuLIN R) SUBCUT PRN (14:00)
[2023-08-03] MEDS: NACL 0.9% 1,000 ML IV SCH ×2 (14:16→21:49)
[2023-08-03] MEDS ORDERED: lisinopriL 20 MG TABLET PO ONE (14:30)
[2023-08-03] MEDS ORDERED: LEVOTHYROXINE SODIUM 0.1 MG TABLET PO ONE (14:30)
[2023-08-03] MEDS ORDERED: PANTOPRAZOLE SODIUM 40 MG TAB PO ONE (14:30)
[2023-08-03 16:00] VITALS: BP_SYST 101; PULSE 78; RESP 18; TEMP 97.6; O2SAT 98
[2023-08-03 17:18] VITALS: BP_SYST 149; PULSE 78; O2SAT 99
[2023-08-03 20:15] VITALS: BP_SYST 135; PULSE 83; RESP 20; TEMP 97; O2SAT 99
[2023-08-03] MEDS: SIMVASTATIN 10 MG TABLET PO SCH (21:48)
[2023-08-03] MEDS ORDERED: ZOLPIDEM TARTRATE 5 MG TABLET PO PRN (23:00)
[2023-08-04 00:09] VITALS: BP_SYST 133; PULSE 64; RESP 19; TEMP 97.2; O2SAT 98
[2023-08-04 05:26] LABS: BASOPHILS # (AUTO) 0.1 K/uL (0.0-0.2); BASOPHILS % (AUTO) 0.8 % (0.0-2.0); EOSINOPHILS # (AUTO) 0.1 K/uL (0.0-0.4); EOSINOPHILS % (AUTO) 1.3 % (0.0-4.0); HEMATOCRIT 33.2 % (36-48); HEMOGLOBIN 11.2 g/dL (12.0-16.0); LYMPHOCYTES % (AUTO) 44.6 % (20.5-51.5); MEAN CORPUSCULAR HEMOGLOBIN 30 pg (27-31); MEAN CORPUSCULAR HGB CONC 34 % (32-36); MEAN CORPUSCULAR VOLUME 88 fL (79.0-98.0); MONOCYTES # (AUTO) 0.7 K/uL (0.0-1.0); MONOCYTES % (AUTO) 7.5 % (1.7-9.3); NEUTROPHILS # (AUTO) 4.1 K/uL (1.8-7.7); NEUTROPHILS % (AUTO) 45.8 % (40.0-70.0); PLATELET COUNT (AUTO) 343 K/uL (130-430); RED BLOOD CELL COUNT(AUTO) 3.78 MIL/uL (4.2-6.2)
[2023-08-04 05:36] LABS: ALBUMIN 3.1 g/dL (3.4-4.8); CALCIUM 8.9 mg/dL (8.4-11.0); CREATININE 0.86 mg/dL (0.55-1.30); PHOSPHORUS 3.5 mg/dL (2.7-4.5); POTASSIUM 4.2 mmol/L (3.5-5.1); TOTAL BILIRUBIN 0.3 mg/dL (0.0-1.0); TOTAL PROTEIN, SERUM 6.1 g/dL (6.4-8.3)
[2023-08-04] MEDS: LEVOTHYROXINE SODIUM 0.1 MG TABLET PO SCH (06:13)
[2023-08-04 08:00] VITALS: BP_SYST 127; PULSE 74; RESP 18; TEMP 97; O2SAT 99
[2023-08-04] MEDS: lisinopriL 20 MG TABLET PO SCH (10:36)
[2023-08-04] MEDS: PANTOPRAZOLE SODIUM 40 MG TAB PO SCH (10:37)
[2023-08-04] MEDS: ASPIRIN 81 MG TABLET(ECOTRIN) PO SCH (10:37)
[2023-08-04] MEDS: NACL 0.9% 1,000 ML IV SCH ×2 (10:38→18:12)
[2023-08-04] MEDS ORDERED: SUCRALFATE 1 GM/10 ML UDC GT ONE (11:15)
[2023-08-04 11:30] VITALS: BP_SYST 138; PULSE 74; RESP 16; TEMP 97; O2SAT 99
[2023-08-04] MEDS ORDERED: POLYETHYLENE GLYCOL 3350, 17 GM/ POWD.PACK PO ONE (13:45)
[2023-08-04 16:00] VITALS: BP_SYST 124; PULSE 67; RESP 16; TEMP 98.3; O2SAT 99
[2023-08-04 16:29] VITALS: O2SAT 97
[2023-08-04] MEDS: SUCRALFATE 1 GM/10 ML UDC GT SCH (17:58)
[2023-08-04 20:00] VITALS: BP_SYST 173; PULSE 81; RESP 20; TEMP 98; O2SAT 95
[2023-08-04] MEDS ORDERED: clonazePAM 0.5 MG TABLET PO PRN (20:45)
[2023-08-04] MEDS: SIMVASTATIN 10 MG TABLET PO SCH (20:57)
[2023-08-05 00:51] VITALS: BP_SYST 128; PULSE 67; RESP 15; TEMP 96.9; O2SAT 99
[2023-08-05 06:18] LABS: BASOPHILS % (AUTO) 0.6 % (0.0-2.0); EOSINOPHILS # (AUTO) 0.1 K/uL (0.0-0.4); EOSINOPHILS % (AUTO) 0.9 % (0.0-4.0); HEMATOCRIT 33.2 % (36-48); HEMOGLOBIN 11.4 g/dL (12.0-16.0); LYMPHOCYTES % (AUTO) 39.3 % (20.5-51.5); MEAN CORPUSCULAR HEMOGLOBIN 30 pg (27-31); MEAN CORPUSCULAR HGB CONC 34 % (32-36); MEAN CORPUSCULAR VOLUME 87 fL (79.0-98.0); MONOCYTES # (AUTO) 0.5 K/uL (0.0-1.0); MONOCYTES % (AUTO) 7.1 % (1.7-9.3); NEUTROPHILS # (AUTO) 3.9 K/uL (1.8-7.7); NEUTROPHILS % (AUTO) 52.1 % (40.0-70.0); PLATELET COUNT (AUTO) 349 K/uL (130-430); RED BLOOD CELL COUNT(AUTO) 3.83 MIL/uL (4.2-6.2); WHITE BLOOD COUNT (AUTO) 7.6 K/uL (4.8-10.8)
[2023-08-05] MEDS: SUCRALFATE 1 GM/10 ML UDC GT SCH (06:26)
[2023-08-05] MEDS: LEVOTHYROXINE SODIUM 0.1 MG TABLET PO SCH (06:26)
[2023-08-05] MEDS: NACL 0.9% 1,000 ML IV SCH (06:29)
[2023-08-05 06:58] LABS: ALBUMIN 3.2 g/dL (3.4-4.8); CREATININE 0.8 mg/dL (0.55-1.30); POTASSIUM 3.9 mmol/L (3.5-5.1); TOTAL BILIRUBIN 0.4 mg/dL (0.0-1.0); TOTAL PROTEIN, SERUM 6.3 g/dL (6.4-8.3)
[2023-08-05 08:00] VITALS: BP_SYST 143; PULSE 81; RESP 17; TEMP 97.9; O2SAT 99
[2023-08-05] MEDS: ASPIRIN 81 MG TABLET(ECOTRIN) PO SCH (08:40)
[2023-08-05] MEDS: lisinopriL 20 MG TABLET PO SCH (08:40)
[2023-08-05] MEDS: PANTOPRAZOLE SODIUM 40 MG TAB PO SCH (08:40)
[2023-08-05 08:55] VITALS: O2SAT 99
[2023-08-05] MEDS ORDERED: POLYETHYLENE GLYCOL 3350, 17 GM/ POWD.PACK PO SCH (09:00)
[2023-08-05 11:29] VITALS: BP_SYST 155; PULSE 91; RESP 17; TEMP 97.9; O2SAT 99
[2023-08-05 11:56] VITALS: BP_SYST 155; PULSE 91; RESP 17; TEMP 97.9; O2SAT 99
== END 2023-08-05 13:50 | disposition home or self-care (01) | DRG 641 ==
LOC: SED 07:34 → STU 11:46 → SMU 14:03 → STU 14:25 → SMU 08-04 14:30
PROVIDERS: ADMIT Family Medicine; ATTEND Family Medicine
DX: E87.1 Hypo-osmolality and hyponatremia (principal); E03.9 Hypothyroidism, unspecified; J45.909 Unspecified asthma, uncomplicated; E11.9 Type 2 diabetes mellitus without complications; K21.9 Gastro-esophageal reflux disease without esophagitis; I10 Essential (primary) hypertension; D64.9 Anemia, unspecified; F41.9 Anxiety disorder, unspecified; E86.0 Dehydration; T50.905A Adverse effect of unspecified drugs, medicaments and biological substances, initial encounter; Z88.8 Allergy status to other drugs, medicaments and biological substances; Z79.899 Other long term (current) drug therapy; Z79.82 Long term (current) use of aspirin
CPT/HCPCS: 36415; 71045; 80048; 80053; 80076; 81001; 81003; 82533; 82962; 83735; 83880; 83930; 83935; 84100; 84302; 84439; 84443; 84484; 85025; 93005; 94760; 96361; 96374; 96375; 97110-GP; 97116-GP; 97530-GP; 99285; G0378; J1815; J2060; J2405

== ENCOUNTER 2023-09-12 10:44 | Emergency (ER) | payer BC ==
[~2023-09-12] VITALS: Ht 157.5 cm; Wt 81.6 kg
[~2023-09-12 10:44] MED LIST changes: -ALBU8.5H8 INH; -AMOX-426 PO; -AZIT-93 PO; -CLON0.1T PO; +LEVO100T9 PO; -LEVO88TA5 PO; -LISI10TA29 PO; +LISI20TA30 PO; -PRED20TA PO
[2023-09-12 11:05] VITALS: BP_SYST 144; PULSE 110; RESP 18; TEMP 100.4; O2SAT 96
[2023-09-12 12:09] LABS: INFLUENZA TYPE A Negative (NEGATIVE); INFLUENZA TYPE B NEGATIVE (NEGATIVE)
[2023-09-12] MEDS ORDERED: AZIT-93 PO (13:00)
[2023-09-12] MEDS ORDERED: ALBMDI INH (13:00)
[2023-09-12 13:14] VITALS: BP_SYST 144; PULSE 110; RESP 18; TEMP 100.4; O2SAT 96
== END 2023-09-12 13:13 | disposition home or self-care (01) ==
LOC: SED 10:44
DX: J45.901 Unspecified asthma with (acute) exacerbation (principal); R05.9 Cough, unspecified; R51.9 Headache, unspecified; M79.10 Myalgia, unspecified site; E11.9 Type 2 diabetes mellitus without complications; K21.9 Gastro-esophageal reflux disease without esophagitis; I10 Essential (primary) hypertension; Z88.5 Allergy status to narcotic agent; Z88.8 Allergy status to other drugs, medicaments and biological substances; Z79.899 Other long term (current) drug therapy; Z20.822 Contact with and (suspected) exposure to COVID-19
CPT/HCPCS: 36415; 71046-TC; 99284

== ENCOUNTER 2023-12-07 08:13 | Emergency (ER) | payer BC ==
[~2023-12-07] VITALS: Ht 157.5 cm; Wt 83.9 kg
[~2023-12-07 08:13] MED LIST changes: +AZIT-93 PO
[2023-12-07 08:24] VITALS: BP_SYST 157; PULSE 102; RESP 18; TEMP 98.3; O2SAT 99
[2023-12-07 09:18] LABS: BILIRUBIN,URINE NEGATIVE (NEGATIVE); BLOOD, URINE NEGATIVE (NEGATIVE); CLARITY/URINE CLEAR (CLEAR); COLOR,URINE YELLOW (YELLOW); GLUCOSE,URINE NEGATIVE (NEGATIVE); KETONES,URINE NEGATIVE (NEGATIVE); LEUKOCYTE ESTERASE ,URINE NEGATIVE (NEGATIVE); NITRITE, URINE NEGATIVE (NEGATIVE); PROTEIN URINE NEGATIVE (NEGATIVE); UROBILINOGEN,URINE 0.2 (0.2-1.0)
[2023-12-07 09:43] LABS: BASOPHILS # (AUTO) 0.1 K/uL (0.0-0.2); BASOPHILS % (AUTO) 0.9 % (0.0-2.0); EOSINOPHILS % (AUTO) 0.3 % (0.0-4.0); HEMATOCRIT 35.7 % (36-48); HEMOGLOBIN 12.3 g/dL (12.0-16.0); LYMPHOCYTES # (AUTO) 2.2 K/uL (1.0-5.5); LYMPHOCYTES % (AUTO) 20.9 % (20.5-51.5); MEAN CORPUSCULAR HEMOGLOBIN 30 pg (27-31); MEAN CORPUSCULAR HGB CONC 34 % (32-36); MEAN CORPUSCULAR VOLUME 86 fL (79.0-98.0); MONOCYTES # (AUTO) 0.7 K/uL (0.0-1.0); MONOCYTES % (AUTO) 6.4 % (1.7-9.3); NEUTROPHILS # (AUTO) 7.5 K/uL (1.8-7.7); NEUTROPHILS % (AUTO) 71.5 % (40.0-70.0); PLATELET COUNT (AUTO) 349 K/uL (130-430); RED BLOOD CELL COUNT(AUTO) 4.15 MIL/uL (4.2-6.2); WHITE BLOOD COUNT (AUTO) 10.5 K/uL (4.8-10.8)
[2023-12-07 10:01] LABS: ANION GAP 10 (5-15); CARBON DIOXIDE 25 mmol/L (23-29); CHLORIDE 102 mmol/L (98-107); CREATININE 0.84 mg/dL (0.55-1.30); GLUCOSE 147 mg/dL (74-106); POTASSIUM 4.1 mmol/L (3.5-5.1); SODIUM SERUM 137 mmol/L (136-145); UREA NITROGEN, BLOOD 9 mg/dL (8-21)
[2023-12-07 10:02] LABS: GFR AFRICAN AMERICAN 86 mL/min (>90); GFR NON AFRICAN-AMERICAN 71 mL/min (>90)
[2023-12-07] MEDS: NACL 0.9% 1,000 ML IV ONE (10:05)
[2023-12-07 10:07] LABS: ALANINE AMINOTRANSFERASE 17 U/L (12-78); ALBUMIN 3.5 g/dL (3.4-4.8); ASPARTATE AMINOTRANSFERASE 7 U/L (10-37); BILIRUBIN,DIRECT 0.1 mg/dL (0.0-0.3); LIPASE 29 U/L (16-77); TOTAL BILIRUBIN 0.5 mg/dL (0.0-1.0); TOTAL PROTEIN, SERUM 7.6 g/dL (6.4-8.3)
[2023-12-07] MEDS ORDERED: CIPR500T5 PO (10:46)
[2023-12-07] MEDS ORDERED: METR-154 PO (10:46)
[2023-12-07 10:57] VITALS: BP_SYST 148; PULSE 91; RESP 18; TEMP 98.3; O2SAT 99
[2023-12-07] MEDS ORDERED: DEXAMETHASONE SOD PHOSPHATE 10 MG/ML VIAL ONE (15:40)
== END 2023-12-07 10:58 | disposition home or self-care (01) ==
LOC: SED 08:13
DX: K57.92 Diverticulitis of intestine, part unspecified, without perforation or abscess without bleeding (principal); R10.30 Lower abdominal pain, unspecified; R11.0 Nausea; J45.909 Unspecified asthma, uncomplicated; E11.9 Type 2 diabetes mellitus without complications; K21.9 Gastro-esophageal reflux disease without esophagitis; I10 Essential (primary) hypertension; Z88.5 Allergy status to narcotic agent; Z88.8 Allergy status to other drugs, medicaments and biological substances; Z79.899 Other long term (current) drug therapy
CPT/HCPCS: 99284; 74176; 96360; 80076; 80048; 81001; 83690; 85025; 84484; 36415; 93005; 82948; 81003; J1100; J7030

== ENCOUNTER 2023-12-30 14:05 | Inpatient (IN) | payer BC ==
[~2023-12-30] VITALS: Ht 157.5 cm; Wt 81.9 kg
[~2023-12-30 14:05] MED LIST changes: +CIPR500T5 PO; +METR-154 PO
[2023-12-30 14:34] VITALS: BP_SYST 158; PULSE 80; RESP 16; TEMP 98.2; O2SAT 100
[2023-12-30] MEDS ORDERED: NACL 0.9% 1,000 ML IV ONE (14:45)
[2023-12-30] MEDS ORDERED: ASPIRIN 81 MG TAB.CHEW PO ONE (14:45)
[2023-12-30 15:04] LABS: BASOPHILS # (AUTO) 0.1 K/uL (0.0-0.2); BASOPHILS % (AUTO) 0.9 % (0.0-2.0); EOSINOPHILS % (AUTO) 0.4 % (0.0-4.0); HEMATOCRIT 35.9 % (36-48); HEMOGLOBIN 12.8 g/dL (12.0-16.0); LYMPHOCYTES # (AUTO) 3.7 K/uL (1.0-5.5); LYMPHOCYTES % (AUTO) 41.3 % (20.5-51.5); MEAN CORPUSCULAR HEMOGLOBIN 30 pg (27-31); MEAN CORPUSCULAR HGB CONC 36 % (32-36); MEAN CORPUSCULAR VOLUME 83 fL (79.0-98.0); MONOCYTES # (AUTO) 0.7 K/uL (0.0-1.0); MONOCYTES % (AUTO) 7.5 % (1.7-9.3); NEUTROPHILS # (AUTO) 4.5 K/uL (1.8-7.7); NEUTROPHILS % (AUTO) 49.9 % (40.0-70.0); PLATELET COUNT (AUTO) 394 K/uL (130-430); RED BLOOD CELL COUNT(AUTO) 4.31 MIL/uL (4.2-6.2); RED CELL DISTRIBUTION WIDTH 12.9 % (9.0-15.0)
[2023-12-30 15:16] LABS: ANION GAP 10 (5-15); CALCIUM 8.8 mg/dL (8.4-11.0); CARBON DIOXIDE 24 mmol/L (23-29); CHLORIDE 91 mmol/L (98-107); CREATININE 0.95 mg/dL (0.55-1.30); GLUCOSE 135 mg/dL (74-106); SODIUM SERUM 125 mmol/L (136-145); UREA NITROGEN, BLOOD 9 mg/dL (8-21)
[2023-12-30 15:21] LABS: GFR AFRICAN AMERICAN 75 mL/min (>90); GFR NON AFRICAN-AMERICAN 62 mL/min (>90)
[2023-12-30 15:31] LABS: FREE T4 (FREE THYROXINE) 1.4 ng/dL (0.6-1.6); THYROID STIMULATING HORMONE 0.34 uIu/mL (0.34-4.82)
[2023-12-30] MEDS: NACL 0.9% 1,000 ML IV ONE (15:38)
[2023-12-30 16:21] LABS: BILIRUBIN,URINE NEGATIVE (NEGATIVE); CLARITY/URINE CLEAR (CLEAR); GLUCOSE,URINE NEGATIVE (NEGATIVE); KETONES,URINE NEGATIVE (NEGATIVE); LEUKOCYTE ESTERASE ,URINE NEGATIVE (NEGATIVE); NITRITE, URINE NEGATIVE (NEGATIVE); PH,URINE 6.5 (5.0-8.0); PROTEIN URINE NEGATIVE (NEGATIVE); UROBILINOGEN,URINE 0.2 (0.2-1.0)
[2023-12-30 16:24] LABS: BLOOD, URINE TRACE (NEGATIVE); COLOR,URINE STRAW (YELLOW)
[2023-12-30 16:45] LABS: RBC,URINE 0-3 /HPF (0-3)
[2023-12-30 16:46] LABS: BACTERIA,URINE RARE /HPF (None Seen); MUCUS,URINE None Seen /LPF (None Seen); WBC,URINE 0-3 /HPF (0-3)
[2023-12-30] MEDS ORDERED: HYDROcodone/ACETAMIN 10-325 MG TAB PO PRN (17:00)
[2023-12-30] MEDS ORDERED: MORPHINE 2 MG/ML INJ. SYRINGE IVP PRN (17:00)
[2023-12-30] MEDS ORDERED: IPRATROPIUM BROM 0.5 MG/2.5 ML VIAL.NEB (ATROVENT) INH PRN (17:00)
[2023-12-30] MEDS ORDERED: HYDROcodone/ACETAMIN 5-325 MG TAB (NORCO/ VICODIN) PO PRN (17:00)
[2023-12-30] MEDS ORDERED: ONDANSETRON HCL 4 MG/2 ML VIAL IVP PRN (17:00)
[2023-12-30 17:03] VITALS: PULSE 80; O2SAT 100
[2023-12-30] MEDS ORDERED: ACETAMINOPHEN 325 MG TABLET PO PRN (17:15)
[2023-12-30 18:04] LABS: CALCIUM 9.1 mg/dL (8.4-11.0); CREATININE 0.89 mg/dL (0.55-1.30); POTASSIUM 4.4 mmol/L (3.5-5.1)
[2023-12-30] MEDS: lisinopriL 20 MG TABLET PO ONE (18:09)
[2023-12-30] MEDS: SIMVASTATIN 10 MG TABLET PO SCH (21:00)
[2023-12-30 22:25] VITALS: BP_SYST 151; PULSE 84; RESP 16; TEMP 98.2; O2SAT 97
[2023-12-30] MEDS: ZOLPIDEM TARTRATE 5 MG TABLET PO PRN (23:06)
[2023-12-30 23:54] LABS: CREATININE 0.87 mg/dL (0.55-1.30); POTASSIUM 4.4 mmol/L (3.5-5.1)
[2023-12-31 00:05] VITALS: BP_SYST 120; PULSE 62; RESP 16; TEMP 97.5; O2SAT 96
[2023-12-31 05:39] LABS: BASOPHILS # (AUTO) 0.1 K/uL (0.0-0.2); BASOPHILS % (AUTO) 1.1 % (0.0-2.0); EOSINOPHILS # (AUTO) 0.1 K/uL (0.0-0.4); EOSINOPHILS % (AUTO) 1.1 % (0.0-4.0); HEMATOCRIT 35.5 % (36-48); HEMOGLOBIN 12.5 g/dL (12.0-16.0); LYMPHOCYTES # (AUTO) 3.7 K/uL (1.0-5.5); LYMPHOCYTES % (AUTO) 47.5 % (20.5-51.5); MEAN CORPUSCULAR HEMOGLOBIN 30 pg (27-31); MEAN CORPUSCULAR HGB CONC 35 % (32-36); MEAN CORPUSCULAR VOLUME 85 fL (79.0-98.0); MONOCYTES # (AUTO) 0.7 K/uL (0.0-1.0); MONOCYTES % (AUTO) 9.1 % (1.7-9.3); NEUTROPHILS # (AUTO) 3.2 K/uL (1.8-7.7); NEUTROPHILS % (AUTO) 41.2 % (40.0-70.0); PLATELET COUNT (AUTO) 378 K/uL (130-430); RED BLOOD CELL COUNT(AUTO) 4.19 MIL/uL (4.2-6.2); RED CELL DISTRIBUTION WIDTH 12.9 % (9.0-15.0); WHITE BLOOD COUNT (AUTO) 7.7 K/uL (4.8-10.8)
[2023-12-31 06:17] LABS: ALBUMIN 3.2 g/dL (3.4-4.8); CALCIUM 8.8 mg/dL (8.4-11.0); CREATININE 0.84 mg/dL (0.55-1.30); POTASSIUM 4.6 mmol/L (3.5-5.1); TOTAL BILIRUBIN 0.4 mg/dL (0.0-1.0); TOTAL PROTEIN, SERUM 6.7 g/dL (6.4-8.3)
[2023-12-31] MEDS: LEVOTHYROXINE SODIUM 0.1 MG TABLET PO SCH (06:23)
[2023-12-31 08:09] VITALS: BP_SYST 140; PULSE 68; RESP 18; TEMP 97.2; O2SAT 98
[2023-12-31] MEDS: ASPIRIN 81 MG TABLET(ECOTRIN) PO SCH (10:05)
[2023-12-31] MEDS: lisinopriL 20 MG TABLET PO SCH (10:07)
[2023-12-31 10:54] VITALS: BP_SYST 131; PULSE 82; RESP 15; TEMP 97.7; O2SAT 95
[2023-12-31] MEDS ORDERED: LEVO112T5 PO (11:47)
[2023-12-31] MEDS ORDERED: METF-379 PO (11:50)
[2023-12-31 12:35] LABS: CALCIUM 9.1 mg/dL (8.4-11.0); CREATININE 0.89 mg/dL (0.55-1.30); POTASSIUM 4.9 mmol/L (3.5-5.1)
[2023-12-31 15:43] VITALS: BP_SYST 138; PULSE 83; RESP 15; TEMP 97.9; O2SAT 95
[2023-12-31] MEDS: NACL 0.9% 1,000 ML IV SCH (16:47)
[2023-12-31 16:57] LABS: CALCIUM 8.7 mg/dL (8.4-11.0); CREATININE 0.94 mg/dL (0.55-1.30); POTASSIUM 4.4 mmol/L (3.5-5.1)
[2023-12-31 19:00] VITALS: BP_SYST 149; PULSE 82; RESP 18; TEMP 97.9; O2SAT 100
[2023-12-31 20:00] VITALS: BP_SYST 149; PULSE 82; RESP 18; TEMP 97.9; O2SAT 100
[2023-12-31 20:26] LABS: ALBUMIN 3.5 g/dL (3.4-4.8); CALCIUM 8.5 mg/dL (8.4-11.0); CREATININE 0.8 mg/dL (0.55-1.30); POTASSIUM 4.3 mmol/L (3.5-5.1); TOTAL BILIRUBIN 0.3 mg/dL (0.0-1.0); TOTAL PROTEIN, SERUM 7.4 g/dL (6.4-8.3)
[2023-12-31] MEDS: clonazePAM 0.5 MG TABLET PO SCH (21:19)
[2024-01-01] VITALS (7 sets, daily range): BP systolic 135–149; PULSE 66–73; RESP 17–18; TEMP 97.3–98.9; O2SAT 95–100
[2024-01-01] MEDS: ACETAMINOPHEN 325 MG TABLET PO PRN (00:59)
[2024-01-01 06:53] LABS: BASOPHILS # (AUTO) 0.1 K/uL (0.0-0.2); BASOPHILS % (AUTO) 0.8 % (0.0-2.0); EOSINOPHILS # (AUTO) 0.1 K/uL (0.0-0.4); EOSINOPHILS % (AUTO) 1.6 % (0.0-4.0); HEMATOCRIT 35.4 % (36-48); HEMOGLOBIN 12.3 g/dL (12.0-16.0); LYMPHOCYTES # (AUTO) 4.3 K/uL (1.0-5.5); LYMPHOCYTES % (AUTO) 49.9 % (20.5-51.5); MEAN CORPUSCULAR HEMOGLOBIN 30 pg (27-31); MEAN CORPUSCULAR HGB CONC 35 % (32-36); MEAN CORPUSCULAR VOLUME 85 fL (79.0-98.0); MONOCYTES # (AUTO) 0.6 K/uL (0.0-1.0); MONOCYTES % (AUTO) 7.4 % (1.7-9.3); NEUTROPHILS # (AUTO) 3.5 K/uL (1.8-7.7); NEUTROPHILS % (AUTO) 40.3 % (40.0-70.0); PLATELET COUNT (AUTO) 385 K/uL (130-430); RED BLOOD CELL COUNT(AUTO) 4.15 MIL/uL (4.2-6.2); RED CELL DISTRIBUTION WIDTH 13.1 % (9.0-15.0); WHITE BLOOD COUNT (AUTO) 8.7 K/uL (4.8-10.8)
[2024-01-01 07:54] LABS: THYROID STIMULATING HORMONE 0.42 uIu/mL (0.34-4.82); URIC ACID 4.6 mg/dL (2.4-7.0)
[2024-01-01 10:55] LABS: ALBUMIN 3.2 g/dL (3.4-4.8); CALCIUM 8.8 mg/dL (8.4-11.0); CREATININE 0.79 mg/dL (0.55-1.30); POTASSIUM 4.4 mmol/L (3.5-5.1); TOTAL BILIRUBIN 0.4 mg/dL (0.0-1.0); TOTAL PROTEIN, SERUM 6.5 g/dL (6.4-8.3)
== END 2024-01-01 18:39 | disposition left against medical advice (07) | DRG 641 ==
LOC: SED 14:05 → STU 16:58 → SMU 12-31 21:00
PROVIDERS: ADMIT Family Medicine; ATTEND Family Medicine
DX: E87.1 Hypo-osmolality and hyponatremia (principal); E44.1 Mild protein-calorie malnutrition; J45.909 Unspecified asthma, uncomplicated; I10 Essential (primary) hypertension; E11.9 Type 2 diabetes mellitus without complications; K21.9 Gastro-esophageal reflux disease without esophagitis; E86.1 Hypovolemia; G47.00 Insomnia, unspecified; Z88.8 Allergy status to other drugs, medicaments and biological substances; Z79.2 Long term (current) use of antibiotics; Z79.899 Other long term (current) drug therapy; Z79.51 Long term (current) use of inhaled steroids; Z79.84 Long term (current) use of oral hypoglycemic drugs; Z68.33 Body mass index [BMI] 33.0-33.9, adult
CPT/HCPCS: 36415; 71045; 80048; 80053; 81000; 81001; 81015; 82533; 83037; 83880; 83930; 83935; 84439; 84443; 84484; 84550; 85025; 93005; 94760; 97116-GP; 99285; G0378